=== PATIENT | female | born 1985 | race Caucasian/White ===

== ENCOUNTER 2020-04-26 16:31 | Emergency (ER) | payer SELFPAY ==
[~2020-04-26] VITALS: Ht 167.6 cm; Wt 66.0 kg
[2020-04-26 16:34] VITALS: BP 100/56
[2020-04-26] MEDS ORDERED: MAGNESIUM/ALUMINUM HYDROXIDE/SIMETHICONE 30ML UDC PO STA (16:56)
[2020-04-26] MEDS ORDERED: VISCOUS LIDOCAINE 2% 15 ML UDC PO STA (16:56)
[2020-04-26] MEDS ORDERED: ONDANSETRON 4MG ODT PO STA (16:56)
[2020-04-26] MEDS ORDERED: KETOROLAC 30MG/ML VIAL IM ONE (17:00)
== END 2020-04-26 17:50 | disposition home or self-care (01) ==
LOC: ER 16:31
DX: K08.89 Other specified disorders of teeth and supporting structures (principal); K21.9 Gastro-esophageal reflux disease without esophagitis; R11.0 Nausea; Z76.0 Encounter for issue of repeat prescription
CPT/HCPCS: 96372; 99283; J1885; Q0162